=== PATIENT | female | born 1995 | race Caucasian/White ===

== ENCOUNTER → 2016-04-21 | Outpatient (CLI) | payer OTHER ==
[~2016-04-21] MED LIST: ALBU17IN INH; DICY20TA11 PO; OMEP20CA3 PO
[2016-04-21 16:14] LABS: BASO # 0.2 K/mm3 (0.0-0.2); BASO % 1.4 % (0.0-1.0); EOS # 0.3 K/mm3 (0.0-0.50); LARGE UNSTAINED CELL # 0.1 K/mm3 (0.0-0.4); LARGE UNSTAINED CELL % 0.8 % (0.0-4.0); LYMPH # 2.4 K/mm3 (1.5-6.5); LYMPH % 14.3 % (24.0-44.0); MEAN CORPUSCULAR HGB CONC 34.6 g/dl (32.0-36.5); MEAN CORPUSCULAR VOLUME 86.8 fl (80.0-96.0); MONO # 0.5 K/mm3 (0.0-0.8); MONO % 2.8 % (0.0-5.0); NEUTROPHILS # 12.6 K/mm3 (1.8-7.7); NEUTROPHILS % 78.6 % (36.0-66.0); PLATELET COUNT, AUTOMATED 346 k/mm3 (150-450); RED CELL DISTRIBUTION WIDTH 13.3 % (11.5-14.5)
[2016-04-22 09:18] LABS: HBsAg Prenatal NEGATIVE (NEGATIVE)
[2016-04-22 09:36] LABS: CONTROL LINE INT CTR LINE PRESENT; HIV SCRN NEGATIVE (NEGATIVE); HIV SCRN1 NEGATIVE (NEGATIVE)
== END ==
LOC: M LAB 15:13
PROVIDERS: ATTEND Obstetrics & Gynecology
DX: Z34.81 Encounter for supervision of other normal pregnancy, first trimester (principal)

== ENCOUNTER 2016-05-11 13:08 | Emergency (ER) | payer OTHER ==
[2016-05-11] MEDS ORDERED: ALBUTEROL SULFATE 2.5 MG/0.5 ML INH NEB SOLN As Ordered ONE (14:44)
[2016-05-11] MEDS ORDERED: AZITHROMYCIN 250 MG TAB As Ordered ONE (15:18)
--- NOTE | 2016-05-11 15:25 | REP ---
Chest x-ray: Single view. History: Cough. Abdomen double shielded. The patient 13 weeks gestation. Comparison study April 30, 2015. Findings: PA chest radiograph is normal. There is no evidence of infiltrate, pleural effusion or pneumothorax. Mediastinum is not widened. Heart size is normal. No rib fracture or bony destructive lesion is seen. Impression: Negative PA chest x-ray. Signed by Donny Mclean MD 05/11/2016 04:47 P
--- NOTE | 2016-05-11 16:11 | EDDOCDS ---
Physician Documentation Name: Terra Ewing Age: 21 yrs Sex: Female : 1995 Arrival Date: 05/11/2016 Time: 13:08 Bed TR8 Private MD: [facility] - Pediatrics Disposition: 05/11/16 15:54 Discharged to Home/Self Care. Impression: Acute sinusitis, Acute bronchitis. - Condition is Stable. - Discharge Instructions: Sinusitis, [id number], Acute Bronchitis, Xaxi-mk-Ewlz. - Prescriptions for Tylenol 325 mg Oral Tablet - take 2 tablets by ORAL route every 6 hours as needed; 30 tablet. Claritin 10 mg Oral Tablet - take 1 tablet by ORAL route once daily As needed; 30 tablet. Zithromax 250 mg Oral Tablet - take 1 tablet by ORAL route once daily start tomorrow; 4 tablet. Albuterol Sulfate 90 mcg/actuation Inhalation HFA Aerosol Inhaler - inhale 2 puff by INHALATION route every 4 hours As needed; 1 Inhaler. - Medication Reconciliation, Local Pharmacy Hours form. - Follow up: Geo Brito; When: 1 - 2 days; Reason: Further diagnostic work-up, Recheck today's complaints, Continuance of care. Follow up: Emergency Department; Reason: Worsening of conditions. - Problem is new. - Symptoms have improved. Historical: - Allergies: no known allergies; - Home Meds: 1. Tylenol 500mg oral tab 2 tabs (Last dose: 05/11/2016 09:00) - PMHx: Anxiety Disorder; acid reflux; - PSHx: Tonsillectomy; - Social history: Smoking status: Patient/guardian denies using No barriers to communication noted, The patient speaks fluent French. - Family history: Not pertinent. - : The pt / caregiver states he / she is not on anticoagulants. Home medication list is obtained from the patient. - Exposure Risk Screening:: None identified. 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 4 in. (162.56 cm) (R); 16:00 BP 138 / 68; Pulse 105; Resp 18; Temp 99.3(TE); Pulse Ox 100% on R/A; Pain 7/10; ar3 13:10 Body Mass Index 32.96 (87.09 kg, 162.56 cm) dd6 MDM: 14:33 Albuterol 2.5 mg Nebulizer once x3 ordered. ef1 14:33 Call Respiratory ordered. ef1 14:34 Call Respiratory complete. ar3 15:03 Chest, 1 View Ordered. EDMS 15:14 -Incentive Spirometer ordered. ef1 15:14 azithromycin 500 mg PO once ordered. ef1 15:35 Financial registration complete. gjb Administered Medications: 15:00 Drug: Albuterol 2.5 mg [albuterol sulfate 2.5 mg/0.5 mL solution for nebulization (0.5 cs15 mL)] Route: Nebulizer; 15:20 Drug: Albuterol 2.5 mg [albuterol sulfate 2.5 mg/0.5 mL solution for nebulization (0.5 cs15 mL)] Route: Nebulizer; 15:25 Drug: azithromycin 500 mg [azithromycin 250 mg tablet (2 tabs)] Route: PO; ms18 15:27 Drug: Albuterol 2.5 mg [albuterol sulfate 2.5 mg/0.5 mL solution for nebulization (0.5 cs15 mL)] Route: Nebulizer; 15:54 CANCELLED (Other Intervention Used): Acetaminophen Tablet 975 mg PO once ef1 Signatures: Dispatcher [employer] EDMS Lita Jauregui, Prabha Gilmore RN, PA-C PA-C ef1 Nataliia Lizarraga, LABORER GOLF COURSE LABORER GOLF COURSE ar3 Jody Negrete RN RN ms18 Sarah Gilmoreb Bobby Smith RT cs15 The chart was reviewed and I authenticate all verbal orders and agree with the evaluation and treatment provided.Corrections: (The following items were deleted from the chart) 15:09 14:36 Chest, 2 view (PA\E\Lat)+XR ordered. EDMS EDMS 15:48 13:18 Home Meds: none; dls ms18 15:54 15:22 Acetaminophen Tablet 975 mg PO once ordered. ef1 ef1 MTDD
--- NOTE | 2016-05-11 16:11 | EDDOCDS ---
Nurse's Notes [facility] Name: Terra Ewing Age: 21 yrs Sex: Female : 1995 Arrival Date: 05/11/2016 Time: 13:08 Bed TR8 Private MD: [facility] - Pediatrics Diagnosis: Acute sinusitis;Acute bronchitis Presentation: 05/11 13:15 Presenting complaint: Patient states: Pt presents with coughing x 2 months unable to dls take any meds due to being 12 weeks . Not sleeping today coughed real hard and felt a pop in her lower left back now unable to walk or move. Adult Sepsis Screening: The patient does not have new or worsening altered mentation. Patient's respiratory rate is less than 22. Systolic blood pressure is greater than 100. Patient has a qSOFA score of 0- Negative Sepsis Screen. Suicide/Homicide risk assessment- the patient denies having any suicidal and/or homicidal ideations and does not present with any other emotional, behavioral or mental health complaints. Status: Patient is not a student financial services counselor or dependent. Transition of care: patient was not received from another setting of care. 13:15 Acuity: INDIRA Level 4 dls 13:15 Method Of Arrival: Wheelchair dls Triage Assessment: 13:18 General: Appears distressed, uncomfortable, well developed, well nourished, well dls groomed, Behavior is crying. Pain: Pain currently is 10 out of 10 on a pain scale. HIV screening NA for this visit Offered previously. 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 Tylenol 500mg oral tab 2 tabs (Last dose: 05/11/2016 09:00) - PMHx: Anxiety Disorder; acid reflux; - PSHx: Tonsillectomy; - Social history: Smoking status: Patient/guardian denies using No barriers to communication noted, The patient speaks fluent Chinese. - Family history: Not pertinent. - : The pt / caregiver states he / she is not on anticoagulants. Home medication list is obtained from the patient. - Exposure Risk Screening:: None identified. Screenin:08 Screening information is obtained from the patient. Fall risk: No risks identified. ms18 Assistance ADL's: requires no assistance with activities of daily living. Abuse/DV Screen: The patient / caregiver reports he/she is: not in a situation that causes fear, pain or injury. Nutritional screening: No deficits noted. Advance Directives: There is no living will. home support is adequate. Assessment: 16:08 General: Appears in no apparent distress, comfortable, Behavior is appropriate for age, ms18 cooperative. Pain: Location: posterior aspect of left lateral abdomen. Neurological: No deficits noted. Respiratory: Airway is patent Respiratory effort is even, unlabored, Reports cough that is. Derm: Skin is pink, warm & dry. normal. Musculoskeletal: Range of motion intact in all extremities. Vital Signs: 13:10 BP 145 / 73; Pulse 91; Resp 22 S; Temp 98.8(O); Pulse Ox 100% on R/A; Weight 87.09 kg dd6 (R); Height 5 ft. 4 in. (162.56 cm) (R); 16:00 BP 138 / 68; Pulse 105; Resp 18; Temp 99.3(TE); Pulse Ox 100% on R/A; Pain 7/10; ar3 13:10 Body Mass Index 32.96 (87.09 kg, 162.56 cm) dd6 Vitals: 13:10 Log In Time: May 11, 2016 at 13:08. dd6 ED Course: 13:10 Patient visited by Farzad Balderrama PCA. dd6 13:10 [facility] is Private Physician. dd6 13:10 Patient moved to Waiting dd6 13:11 Patient moved to Pre RCE dd6 13:17 Triage Initiated dls 13:54 Patient moved to Triage 3 kcs 14:20 [facility]. ef1 14:20 Vineet English MD is Attending Physician. ef1 14:22 Patient visited by Prabha Newell PA-C. ef1 14:34 Patient moved to PR1 / 25 ar3 14:51 Patient visited by Prabha Newell PA-C. ef1 15:21 Patient visited by Prabha Newell PA-C. ef1 15:37 Chest, 1 View Returned. EDMS 15:53 Patient visited by Prabha Newell PA-C. ef1 15:54 Geo Brito is Referral Physician. ef1 16:00 Patient visited by Nataliia Lizarraga PCA. ar3 16:07 Patient visited by Jody Negrete RN. ms18 16:07 Patient moved to TR8 ms18 16:08 The patient / caregiver is instructed regarding the plan of care and ED course. Patient ms18 has correct armband on for positive identification. Property sent home with patient. :Personal belongings accompany Pt. 16:08 No IV's were initiated during this patient's visit. No procedures done that require ms18 assistance. Administered Medications: 15:00 Drug: Albuterol 2.5 mg [albuterol sulfate 2.5 mg/0.5 mL solution for nebulization (0.5 cs15 mL)] Route: Nebulizer; 15:20 Drug: Albuterol 2.5 mg [albuterol sulfate 2.5 mg/0.5 mL solution for nebulization (0.5 cs15 mL)] Route: Nebulizer; 15:25 Drug: azithromycin 500 mg [azithromycin 250 mg tablet (2 tabs)] Route: PO; ms18 15:27 Drug: Albuterol 2.5 mg [albuterol sulfate 2.5 mg/0.5 mL solution for nebulization (0.5 cs15 mL)] Route: Nebulizer; 15:54 CANCELLED (Other Intervention Used): Acetaminophen Tablet 975 mg PO once ef1 RT: 15:09 Initial Med Neb Given as ordered. Respiratory: Respiratory effort is labored, cs15 Respiratory pattern is Shallowing breathing Breath sounds are diminished bilaterally. Reports cough that is persistent since a few months ago that has progressively worsened until she felt a pop in her posterior chest that caused her to cry. 15:28 Incentive Spirometry performed: 15 inspirations. Volume of inspiration: 2500 mls. cs15 Order Results: Radiology Order: Chest, 1 View Test: Chest, 1 View REASON FOR EXAMINATION: Cough; Chest x-ray: Single view.; ; History: Cough. Abdomen double shielded. The patient 13 weeks gestation.; ; Comparison study April 30, 2015.; ; Findings: PA chest radiograph is normal. There is no evidence of infiltrate,; pleural effusion or pneumothorax. Mediastinum is not widened. Heart size is; normal. No rib fracture or bony destructive lesion is seen.; ; Impression:; ; Negative PA chest x-ray.; ; ; ; ; Unreviewed; Outcome: 15:54 Discharge ordered by Provider. ef1 16:08 Discharge Assessment: Patient awake, alert and oriented x 3. No cognitive and/or ms18 functional deficits noted. Patient verbalized understanding of disposition instructions. patient administered narcotics - no. The following High Risk Discharge criteria are identified: None. Discharged to home ambulatory. Condition: good Condition: stable. Discharge instructions given to patient, Instructed on discharge instructions, follow up and referral plans. medication usage, Demonstrated understanding of instructions, medications, Pt was receptive of discharge instructions/ teaching. Prescriptions given X 3. No special radiology studies were completed. 16:10 Patient left the ED. ms18 Signatures: Dispatcher [employer] EDMS Anna Jimenez RN RN kcs Lita Jauregui RN RN dls Farzad Balderrama, NUCLEAR PHYSICIST NUCLEAR PHYSICIST dd6 Prabha Newell, PA-C PA-C ef1 Nataliia Lizarraga, NUCLEAR PHYSICIST NUCLEAR PHYSICIST ar3 Jody Negrete RN RN ms18 Bobby Smith,RT RT cs15 Corrections: (The following items were deleted from the chart) 15:48 13:18 Home Meds: none; dls ms18 MTDD
--- NOTE | 2016-05-13 17:11 | EDDOCDS ---
Physician Documentation [facility] Name: Terra Ewing Age: 21 yrs Sex: Female : 1995 Arrival Date: 05/11/2016 Time: 13:08 Bed TR8 Private MD: [facility] - Pediatrics Disposition: 05/11/16 15:54 Discharged to Home/Self Care. Impression: Acute sinusitis, Acute bronchitis. - Condition is Stable. - Discharge Instructions: Sinusitis, Zmoe-vh-Ukek, Acute Bronchitis, Hmfs-bg-Mwdf. - Prescriptions for Tylenol 325 mg Oral Tablet - take 2 tablets by ORAL route every 6 hours as needed; 30 tablet. Claritin 10 mg Oral Tablet - take 1 tablet by ORAL route once daily As needed; 30 tablet. Zithromax 250 mg Oral Tablet - take 1 tablet by ORAL route once daily start tomorrow; 4 tablet. Albuterol Sulfate 90 mcg/actuation Inhalation HFA Aerosol Inhaler - inhale 2 puff by INHALATION route every 4 hours As needed; 1 Inhaler. - Medication Reconciliation, Local Pharmacy Hours form. - Follow up: Geo Brito; When: 1 - 2 days; Reason: Further diagnostic work-up, Recheck today's complaints, Continuance of care. Follow up: Emergency Department; Reason: Worsening of conditions. - Problem is new. - Symptoms have improved. Historical: - Allergies: no known allergies; - Home Meds: 1. Tylenol 500mg oral tab 2 tabs (Last dose: 05/11/2016 09:00) - PMHx: Anxiety Disorder; acid reflux; - PSHx: Tonsillectomy; - Social history: Smoking status: Patient/guardian denies using No barriers to communication noted, The patient speaks fluent Slovenian. - Family history: Not pertinent. - : The pt / caregiver states he / she is not on anticoagulants. Home medication list is obtained from the patient. - Exposure Risk Screening:: None identified. 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 4 in. (162.56 cm) (R); 16:00 BP 138 / 68; Pulse 105; Resp 18; Temp 99.3(TE); Pulse Ox 100% on R/A; Pain 7/10; ar3 13:10 Body Mass Index 32.96 (87.09 kg, 162.56 cm) dd6 MDM: 14:33 Albuterol 2.5 mg Nebulizer once x3 ordered. ef1 14:33 Call Respiratory ordered. ef1 14:34 Call Respiratory complete. ar3 15:03 Chest, 1 View Ordered. EDMS 15:14 -Incentive Spirometer ordered. ef1 15:14 azithromycin 500 mg PO once ordered. ef1 15:35 Financial registration complete. b 17:31 [facility] Payment Agreement was scanned into [employer] and attached to record. gjb 21:59 T-Sheet-- Draft Copy was scanned into [employer] and attached to record. klr 05/12 10:57 Radiology Report was scanned into [employer] and attached to record. gb Administered Medications: 05/11 15:00 Drug: Albuterol 2.5 mg [albuterol sulfate 2.5 mg/0.5 mL solution for nebulization (0.5 cs15 mL)] Route: Nebulizer; 15:20 Drug: Albuterol 2.5 mg [albuterol sulfate 2.5 mg/0.5 mL solution for nebulization (0.5 cs15 mL)] Route: Nebulizer; 15:25 Drug: azithromycin 500 mg [azithromycin 250 mg tablet (2 tabs)] Route: PO; ms18 15:27 Drug: Albuterol 2.5 mg [albuterol sulfate 2.5 mg/0.5 mL solution for nebulization (0.5 cs15 mL)] Route: Nebulizer; 15:54 CANCELLED (Other Intervention Used): Acetaminophen Tablet 975 mg PO once ef1 Signatures: Dispatcher [employer] Lita Ch RN RN dls Barnhardt, Gloria, Reg Reg gb Prabha Newell, PA-C PA-C ef1 Lei Lizarragaa, WET PROCESS MILLER HEAD ASSISTANT WET PROCESS MILLER HEAD ASSISTANT ar3 Jody Negrete RN RN ms18 Gilmore, Sarah gjb Redder, Katey klr Smith, Bobby RT cs15 The chart was reviewed and I authenticate all verbal orders and agree with the evaluation and treatment provided.Corrections: (The following items were deleted from the chart) 15:09 14:36 Chest, 2 view (PA\E\Lat)+XR ordered. EDMS EDMS 15:48 13:18 Home Meds: none; dls ms18 15:54 15:22 Acetaminophen Tablet 975 mg PO once ordered. ef1 ef1 Attachments: 17:31 [place] Payment Agreement [facility] 21:59 T-Sheet-- Draft Copy klr Chart Complete MTDD
--- NOTE | 2016-05-13 17:11 | EDDOCDS ---
Physician Documentation [facility] Name: Terra Ewing Age: 21 yrs Sex: Female : 1995 Arrival Date: 05/11/2016 Time: 13:08 Bed TR8 Private MD: [facility] - Pediatrics Disposition: 05/11/16 15:54 Discharged to Home/Self Care. Impression: Acute sinusitis, Acute bronchitis. - Condition is Stable. - Discharge Instructions: Sinusitis, Uwzn-lq-[id number], Acute Bronchitis, Yyux-ai-Pffy. - Prescriptions for Tylenol 325 mg Oral Tablet - take 2 tablets by ORAL route every 6 hours as needed; 30 tablet. Claritin 10 mg Oral Tablet - take 1 tablet by ORAL route once daily As needed; 30 tablet. Zithromax 250 mg Oral Tablet - take 1 tablet by ORAL route once daily start tomorrow; 4 tablet. Albuterol Sulfate 90 mcg/actuation Inhalation HFA Aerosol Inhaler - inhale 2 puff by INHALATION route every 4 hours As needed; 1 Inhaler. - Medication Reconciliation, Local Pharmacy Hours form. - Follow up: Geo Brito; When: 1 - 2 days; Reason: Further diagnostic work-up, Recheck today's complaints, Continuance of care. Follow up: Emergency Department; Reason: Worsening of conditions. - Problem is new. - Symptoms have improved. Historical: - Allergies: no known allergies; - Home Meds: 1. Tylenol 500mg oral tab 2 tabs (Last dose: 05/11/2016 09:00) - PMHx: Anxiety Disorder; acid reflux; - PSHx: Tonsillectomy; - Social history: Smoking status: Patient/guardian denies using No barriers to communication noted, The patient speaks fluent Turkmen. - Family history: Not pertinent. - : The pt / caregiver states he / she is not on anticoagulants. Home medication list is obtained from the patient. - Exposure Risk Screening:: None identified. 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 4 in. (162.56 cm) (R); 16:00 BP 138 / 68; Pulse 105; Resp 18; Temp 99.3(TE); Pulse Ox 100% on R/A; Pain 7/10; ar3 13:10 Body Mass Index 32.96 (87.09 kg, 162.56 cm) dd6 MDM: 14:33 Albuterol 2.5 mg Nebulizer once x3 ordered. ef1 14:33 Call Respiratory ordered. ef1 14:34 Call Respiratory complete. ar3 15:03 Chest, 1 View Ordered. EDMS 15:14 -Incentive Spirometer ordered. ef1 15:14 azithromycin 500 mg PO once ordered. ef1 15:35 Financial registration complete. b 17:31 [facility] Payment Agreement was scanned into [employer] and attached to record. gjb 21:59 T-Sheet-- Draft Copy was scanned into [employer] and attached to record. klr 05/12 10:57 Radiology Report was scanned into [employer] and attached to record. gb Administered Medications: 05/11 15:00 Drug: Albuterol 2.5 mg [albuterol sulfate 2.5 mg/0.5 mL solution for nebulization (0.5 cs15 mL)] Route: Nebulizer; 15:20 Drug: Albuterol 2.5 mg [albuterol sulfate 2.5 mg/0.5 mL solution for nebulization (0.5 cs15 mL)] Route: Nebulizer; 15:25 Drug: azithromycin 500 mg [azithromycin 250 mg tablet (2 tabs)] Route: PO; ms18 15:27 Drug: Albuterol 2.5 mg [albuterol sulfate 2.5 mg/0.5 mL solution for nebulization (0.5 cs15 mL)] Route: Nebulizer; 15:54 CANCELLED (Other Intervention Used): Acetaminophen Tablet 975 mg PO once ef1 Signatures: Dispatcher [employer] Lita Ch RN RN dls Barnhardt, Gloria, Reg Reg gb Prabha Newell, PA-C PA-C ef1 Lei Lizarragaa, ASSISTANT WINEMAKER ASSISTANT WINEMAKER ar3 Jody Negrete RN RN ms18 Gilmore, Sarah gjb Redder, Katey klr Smith, Bobby RT cs15 The chart was reviewed and I authenticate all verbal orders and agree with the evaluation and treatment provided.Corrections: (The following items were deleted from the chart) 15:09 14:36 Chest, 2 view (PA\E\Lat)+XR ordered. EDMS EDMS 15:48 13:18 Home Meds: none; dls ms18 15:54 15:22 Acetaminophen Tablet 975 mg PO once ordered. ef1 ef1 Attachments: 17:31 [place] Payment Agreement [facility] 21:59 T-Sheet-- Draft Copy klr Chart Complete MTDD
--- NOTE | 2016-05-13 17:11 | EDDOCDS ---
Nurse's Notes [facility] Name: Terra Ewing Age: 21 yrs Sex: Female : 1995 Arrival Date: 05/11/2016 Time: 13:08 Bed TR8 Private MD: [facility] Diagnosis: Acute sinusitis;Acute bronchitis Presentation: 05/11 13:15 Presenting complaint: Patient states: Pt presents with coughing x 2 months unable to dls take any meds due to being 12 weeks . Not sleeping today coughed real hard and felt a pop in her lower left back now unable to walk or move. Adult Sepsis Screening: The patient does not have new or worsening altered mentation. Patient's respiratory rate is less than 22. Systolic blood pressure is greater than 100. Patient has a qSOFA score of 0- Negative Sepsis Screen. Suicide/Homicide risk assessment- the patient denies having any suicidal and/or homicidal ideations and does not present with any other emotional, behavioral or mental health complaints. Status: Patient is not a financial report service sales agent or dependent. Transition of care: patient was not received from another setting of care. 13:15 Acuity: INDIRA Level 4 dls 13:15 Method Of Arrival: Wheelchair dls Triage Assessment: 13:18 General: Appears distressed, uncomfortable, well developed, well nourished, well dls groomed, Behavior is crying. Pain: Pain currently is 10 out of 10 on a pain scale. HIV screening NA for this visit Offered previously. DATABASE MODELER: 13:18 1, Full Term 0, Premature 0, 0, Living 0, LMP 02/11/2016 dls Historical: - Allergies: no known allergies; - Home Meds: 1. Tylenol 500mg oral tab 2 tabs (Last dose: 05/11/2016 09:00) - PMHx: Anxiety Disorder; acid reflux; - PSHx: Tonsillectomy; - Social history: Smoking status: Patient/guardian denies using No barriers to communication noted, The patient speaks fluent Turkish. - Family history: Not pertinent. - : The pt / caregiver states he / she is not on anticoagulants. Home medication list is obtained from the patient. - Exposure Risk Screening:: None identified. Screenin:08 Screening information is obtained from the patient. Fall risk: No risks identified. ms18 Assistance ADL's: requires no assistance with activities of daily living. Abuse/DV Screen: The patient / caregiver reports he/she is: not in a situation that causes fear, pain or injury. Nutritional screening: No deficits noted. Advance Directives: There is no living will. home support is adequate. Assessment: 16:08 General: Appears in no apparent distress, comfortable, Behavior is appropriate for age, ms18 cooperative. Pain: Location: posterior aspect of left lateral abdomen. Neurological: No deficits noted. Respiratory: Airway is patent Respiratory effort is even, unlabored, Reports cough that is. Derm: Skin is pink, warm & dry. normal. Musculoskeletal: Range of motion intact in all extremities. Vital Signs: 13:10 BP 145 / 73; Pulse 91; Resp 22 S; Temp 98.8(O); Pulse Ox 100% on R/A; Weight 87.09 kg dd6 (R); Height 5 ft. 4 in. (162.56 cm) (R); 16:00 BP 138 / 68; Pulse 105; Resp 18; Temp 99.3(TE); Pulse Ox 100% on R/A; Pain 7/10; ar3 13:10 Body Mass Index 32.96 (87.09 kg, 162.56 cm) dd6 Vitals: 13:10 Log In Time: May 11, 2016 at 13:08. dd6 ED Course: 13:10 Patient visited by Farzad Balderrama PCA. dd6 13:10 [facility] is Private Physician. dd6 13:10 Patient moved to Waiting dd6 13:11 Patient moved to Pre RCE dd6 13:17 Triage Initiated dls 13:54 Patient moved to Triage 3 kcs 14:20 [facility] ef1 14:20 Vineet English MD is Attending Physician. ef1 14:22 Patient visited by Prabha Newell PA-C. ef1 14:34 Patient moved to PR1 / 25 ar3 14:51 Patient visited by Prabha Newell PA-C. ef1 15:21 Patient visited by Prabha Newell PA-C. ef1 15:37 Chest, 1 View Returned. EDMS 15:53 Patient visited by Prabha Newell PA-C. ef1 15:54 Geo Brito is Referral Physician. ef1 16:00 Patient visited by Nataliia Lizarraga PCA. ar3 16:07 Patient visited by Jody Negrete RN. ms18 16:07 Patient moved to TR8 ms18 16:08 The patient / caregiver is instructed regarding the plan of care and ED course. Patient ms18 has correct armband on for positive identification. Property sent home with patient. :Personal belongings accompany Pt. 16:08 No IV's were initiated during this patient's visit. No procedures done that require ms18 assistance. 17:31 [facility] [place] Payment Agreement was scanned into [employer] and attached to record. gjb 21:59 T-Sheet-- Draft Copy was scanned into [employer] and attached to record. klr 05/12 10:57 Radiology Report was scanned into [employer] and attached to record. gb Administered Medications: 05/11 15:00 Drug: Albuterol 2.5 mg [albuterol sulfate 2.5 mg/0.5 mL solution for nebulization (0.5 cs15 mL)] Route: Nebulizer; 15:20 Drug: Albuterol 2.5 mg [albuterol sulfate 2.5 mg/0.5 mL solution for nebulization (0.5 cs15 mL)] Route: Nebulizer; 15:25 Drug: azithromycin 500 mg [azithromycin 250 mg tablet (2 tabs)] Route: PO; ms18 15:27 Drug: Albuterol 2.5 mg [albuterol sulfate 2.5 mg/0.5 mL solution for nebulization (0.5 cs15 mL)] Route: Nebulizer; 15:54 CANCELLED (Other Intervention Used): Acetaminophen Tablet 975 mg PO once ef1 RT: 15:09 Initial Med Neb Given as ordered. Respiratory: Respiratory effort is labored, cs15 Respiratory pattern is Shallowing breathing Breath sounds are diminished bilaterally. Reports cough that is persistent since a few months ago that has progressively worsened until she felt a pop in her posterior chest that caused her to cry. 15:28 Incentive Spirometry performed: 15 inspirations. Volume of inspiration: 2500 mls. cs15 Order Results: Radiology Order: Chest, 1 View Test: Chest, 1 View REASON FOR EXAMINATION: Cough; Chest x-ray: Single view.; ; History: Cough. Abdomen double shielded. The patient 13 weeks gestation.; ; Comparison study April 30, 2015.; ; Findings: PA chest radiograph is normal. There is no evidence of infiltrate,; pleural effusion or pneumothorax. Mediastinum is not widened. Heart size is; normal. No rib fracture or bony destructive lesion is seen.; ; Impression:; ; Negative PA chest x-ray.; ; ; Signed by; Donny Mclean MD 05/11/2016 04:47 P; Outcome: 15:54 Discharge ordered by Provider. ef1 16:08 Discharge Assessment: Patient awake, alert and oriented x 3. No cognitive and/or ms18 functional deficits noted. Patient verbalized understanding of disposition instructions. patient administered narcotics - no. The following High Risk Discharge criteria are identified: None. Discharged to home ambulatory. Condition: good Condition: stable. Discharge instructions given to patient, Instructed on discharge instructions, follow up and referral plans. medication usage, Demonstrated understanding of instructions, medications, Pt was receptive of discharge instructions/ teaching. Prescriptions given X 3. No special radiology studies were completed. 16:10 Patient left the ED. ms18 Signatures: Dispatcher [employer] EDMS Anna Jimenez, RN RN Lita Negro RN RN dls Fernanda Schulte, Reg Reg gb Farzad Balderrama, OPERATIONS SUPPORT MANAGER OPERATIONS SUPPORT MANAGER dd6 Prabha Newell, PA-C PA-C ef1 Nataliia Lizarraga, OPERATIONS SUPPORT MANAGER OPERATIONS SUPPORT MANAGER ar3 Jody Negrete RN RN ms18 Bobby Smith,RT RT cs15 Sarah Gilmore Kathie klr Corrections: (The following items were deleted from the chart) 15:48 13:18 Home Meds: none; dls ms18 Chart Complete MTDD
== END 2016-05-11 16:10 | disposition home or self-care (01) ==
LOC: M ED 13:08
DX: J01.90 Acute sinusitis, unspecified (principal); J20.9 Acute bronchitis, unspecified; R07.0 Pain in throat; G50.1 Atypical facial pain; F41.9 Anxiety disorder, unspecified; K21.9 Gastro-esophageal reflux disease without esophagitis

== ENCOUNTER 2017-08-14 12:48 | Emergency (ER) | payer MEDICAID, SELFPAY, OTHER ==
[2017-08-14] MEDS: ULIPRISTAL ACETATE 30 MG TAB (ELLA) PO (14:15)
[2017-08-14 15:25] LABS: CONTROL LINE HCG INT CTR LINE PRESENT; HCG, SERUM QUALITATIVE NEGATIVE (NEGATIVE)
[2017-08-14 15:40] LABS: CHLAMYDIA DNA AMPLIFICATION NEGATIVE (NEGATIVE); GC DNA AMPLIFICATION NEGATIVE (NEGATIVE)
[2017-08-14 15:43] LABS: HIV SCRN NEGATIVE (NEGATIVE); HIV SCRN1 NEGATIVE (NEGATIVE)
[2017-08-14 15:44] LABS: CONTROL LINE INT CTR LINE PRESENT
[2017-08-14] MEDS: AZITHROMYCIN 250 MG TAB PO (16:04)
[2017-08-14] MEDS: EXPOSURE KIT-ADULT 7 DAY SUPPLY PO (16:04)
[2017-08-14] MEDS: ONDANSETRON 4 MG ORAL DISINTEGRATING TAB (Q0162 PER 1MG) PO (16:04)
[2017-08-14] MEDS: DOXYCYCLINE HYCLATE 100 MG TAB PO (16:04)
[2017-08-14] MEDS: cefTRIAXone SOD 250 MG VIAL (J0696) IM (16:04)
[2017-08-14] MEDS: [UNRECOGNIZED DRUG - OTHER] IM (16:11)
[2017-08-16 10:07] LABS: HEPATITIS B SURFACE ANTIBODY POSITIVE (POSITIVE)
[2017-08-16 10:20] LABS: HEPATITIS B SURFACE ANTIGEN NEGATIVE (NEGATIVE)
[2017-08-16 10:48] LABS: HEPATITIS C VIRUS ABY INDEX < 0.0 INDEX (<0.8)
== END 2017-08-14 16:21 | disposition home or self-care (01) ==
LOC: M ED 12:48
DX: Z04.41 Encounter for examination and observation following alleged adult rape (principal); F10.920 Alcohol use, unspecified with intoxication, uncomplicated; J45.909 Unspecified asthma, uncomplicated; F07.81 Postconcussional syndrome; R41.3 Other amnesia; F17.200 Nicotine dependence, unspecified, uncomplicated
CPT/HCPCS: 90744

== ENCOUNTER 2017-08-14 22:54 | Emergency (ER) | payer MEDICAID ==
[2017-08-15] MEDS: metroNIDAZOLE (FLAGYL) 500 MG TAB PO (00:44)
[2017-08-15] MEDS: ONDANSETRON 4 MG ORAL DISINTEGRATING TAB (Q0162 PER 1MG) PO (00:44)
== END 2017-08-15 04:16 | disposition home or self-care (01) ==
LOC: M ED 08-15 04:16
DX: T76.21XA Adult sexual abuse, suspected, initial encounter (principal); X58.XXXA Exposure to other specified factors, initial encounter; Y92.89 Other specified places as the place of occurrence of the external cause; N76.0 Acute vaginitis; F17.210 Nicotine dependence, cigarettes, uncomplicated
CPT/HCPCS: Q0162